=== PATIENT | female | born 1985 | race Caucasian/White ===

== ENCOUNTER → 2016-12-20 | Day surgery (SDC) | payer BC ==
[~2016-12-20] MED LIST: COLACE 100MG C100 MG PO; IBUPROFEN600 MG PO; IBUPROFEN800 MG PO; NORCO 10-325 T1 EACH PO; NORCO 5-325 TA1 EACH PO; PRENATAL TABLE1 EAC2 PO
[2016-12-20 07:22] LABS: HEMOGLOBIN 13.6 gm/dl (12.3-15.3); RED BLOOD COUNT 4.33 M/UL (4.00-5.10); WHITE BLOOD COUNT 5.7 K/UL (4.5-11.0)
== END | disposition home or self-care (01) ==
LOC: OR 06:44
PROVIDERS: Obstetrics & Gynecology
PROC: 10D17ZZ Extraction of Products of Conception, Retained, Via Natural or Artificial Opening (ICD-10-PCS; principal; 2016-12-20 07:30)
DX: O02.1 Missed abortion (principal); G43.909 Migraine, unspecified, not intractable, without status migrainosus; K21.9 Gastro-esophageal reflux disease without esophagitis; Z79.899 Other long term (current) drug therapy
CPT/HCPCS: 36415; 81001; 85027; J1100; J1885; J2250; J2270; J2405; J2710; J2795; J3010; J7120

== ENCOUNTER → 2020-08-22 | Outpatient (CLI) | payer OTHER ==
[~2020-08-22] MED LIST changes: +AMOXICILLIN500 MG PO; +CEPHALEXIN500 M1 PO; +CLARITIN10 MG PO; +CLEOCIN HCL300 MG PO; +COLACE100 MG PO; +MYCOSTATIN100000 UTS PO; +PRENATAL TABLE1 EAC1 PO; +PRILOSEC OTC20 MG PO
== END ==
LOC: US 09:30
DX: R74.8 Abnormal levels of other serum enzymes (principal); K76.0 Fatty (change of) liver, not elsewhere classified
CPT/HCPCS: 76700